=== PATIENT | female | born 1975 | race Caucasian/White ===

== ENCOUNTER 2019-10-22 06:00 | Outpatient (CLI) | payer SELFPAY | END 2019-10-22 06:01 | disposition home or self-care (01) | LOC: SPT 10-23 15:00 | PROVIDERS: Family Provider Family Medicine; Visit Provider Physical Therapist | DX: M79.605 Pain in left leg (principal); M79.604 Pain in right leg ==

== ENCOUNTER 2019-12-11 09:00 | Outpatient (CLI) | payer SELFPAY | END 2019-12-11 09:01 | disposition home or self-care (01) | LOC: SPT 11:24 | PROVIDERS: Family Provider Family Medicine; Visit Provider Physical Therapist | DX: Z76.89 Persons encountering health services in other specified circumstances (principal) ==

== ENCOUNTER → 2021-09-02 14:03 | Outpatient (BNVA) | payer OTHER, SELFPAY | PROVIDERS: Family Provider Family Medicine; Visit Provider Orthopaedic Surgery | DX: M54.50 Low back pain, unspecified (principal); M54.2 Cervicalgia | CPT/HCPCS: 72050; 72110 ==

== ENCOUNTER 2021-10-06 08:32 | Outpatient (CLI) | payer OTHER, SELFPAY ==
--- NOTE | 2021-10-06 08:45 | MR_ITS ---
WS: [id number] MRI LUMBAR SPINE NONCONTRAST TECHNIQUE: Sagittal T1, T2 and STIR imaging. Axial T1 and T2 imaging. CLINICAL INFORMATION: pain COMPARISON: None. FINDINGS: Straightening of the normal cervical lordosis. Tiny disc protrusions in the cervical spine swimming coach imaging at C4-C5 C5-C6 and C6-C7. Mild lumbar curve. No acute compression. No high-grade central canal stenosis. L1-L2: Normal. L2-L3: Normal L3-L4: Mild annular bulging. Slight effacement of ventral thecal sac. Mild facet arthropathy. Spinal canal and foramen are patent. L4-L5: Mild annular bulging. Minimal effacement of the ventral thecal sac. Annular tear eccentric to the LEFT with small LEFT foraminal protrusion. This slightly contacts the exiting LEFT L4 nerve root with mild LEFT foraminal narrowing. RIGHT foramen is patent. Mild facet arthropathy. L5-S1: Mild annular bulging. Spinal canal and foramen are patent. Mild facet arthropathy. Visualized pelvic bony structures: Normal. Paravertebral soft tissues: Normal. MR/MR lumbar spine wo con* [id number] IMPRESSION: 1. Mild lumbar curve. No acute compression. No high-grade central canal stenos is. 2. LEFT foraminal protrusion with a small annular tear. This contacts the exit ing LEFT L4 nerve root. Recommend correlation for LEFT L4 nerve root symptoms. Mild LEFT foraminal narrowing. 3. Mild facet arthropathy L4-L5 and L5-S1. 4. Minimal annular bulging L3-L4. 5. Tiny disc protrusions in the cervical spinal swimming coach imaging eccentric to the RIGHT C5-C6 and C6-C7. 6. No other remarkable findings.
== END 2021-10-06 08:33 | disposition home or self-care (01) ==
PROVIDERS: Family Provider Family Medicine; Visit Provider Orthopaedic Surgery
DX: M47.816 Spondylosis without myelopathy or radiculopathy, lumbar region (principal); M47.817 Spondylosis without myelopathy or radiculopathy, lumbosacral region; M51.26 Other intervertebral disc displacement, lumbar region; M50.222 Other cervical disc displacement at C5-C6 level
CPT/HCPCS: 72148

== ENCOUNTER → 2022-09-15 12:26 | Outpatient (BNVA) | payer OTHER, SELFPAY | PROVIDERS: Family Provider Family Medicine; Visit Provider Emergency Medicine | DX: R39.9 Unspecified symptoms and signs involving the genitourinary system (principal); N10 Acute pyelonephritis | CPT/HCPCS: 81000 ==

== ENCOUNTER → 2022-10-19 08:44 | Outpatient (BNVA) | payer OTHER, SELFPAY | PROVIDERS: Family Provider Family Medicine; Visit Provider Family Medicine | DX: Z13.9 Encounter for screening, unspecified (principal) | CPT/HCPCS: 82310; 83036; 83970 ==

== ENCOUNTER 2023-10-19 11:09 | Outpatient (RCR) | payer OTHER, SELFPAY | END 2023-11-06 23:59 | disposition home or self-care (01) | LOC: SPT 11:09 | PROVIDERS: Visit Provider Physician Assistant | DX: G57.21 Lesion of femoral nerve, right lower limb (principal) | CPT/HCPCS: 97110; 97161 ==

== ENCOUNTER 2023-11-16 15:18 | Outpatient (RCR) | payer OTHER, SELFPAY | END 2023-12-07 23:59 | disposition home or self-care (01) | LOC: SPT 15:18 | PROVIDERS: Visit Provider Physician Assistant | DX: G57.21 Lesion of femoral nerve, right lower limb (principal); M25.551 Pain in right hip; M25.552 Pain in left hip | CPT/HCPCS: 97110 ==

== ENCOUNTER 2023-12-08 06:00 | Outpatient (RCR) | payer OTHER, SELFPAY | END 2023-12-12 23:59 | disposition home or self-care (01) | LOC: SPT 06:00 | PROVIDERS: Visit Provider Physician Assistant | DX: G57.21 Lesion of femoral nerve, right lower limb (principal) | CPT/HCPCS: 97110 ==